=== PATIENT | male | born 2000 | race Caucasian/White ===

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

== ENCOUNTER 2020-05-26 15:49 | Emergency (ER) | payer OTHER ==
[~2020-05-26] VITALS: Ht 172.7 cm; Wt 121.1 kg
[2020-05-26 16:01] VITALS: BP 108/51
--- NOTE | 2020-05-26 16:10 | NUR ---
Patient ambulated to bed 1 with family. RN evaluating patient at bedside.
[2020-05-26] MEDS ORDERED: LIDOCAINE MPF 2% 100 MG/5 ML VIAL INJ ONE (16:20)
[2020-05-26] MEDS ORDERED: KETOROLAC 60 MG/2 ML VIAL IM ONE (16:20)
[2020-05-26] MEDS ORDERED: LIDOCAINE 2% 100 MG/5 ML SYR IVP ONE (16:36)
--- NOTE | 2020-05-26 16:40 | NUR ---
PT C/O L 1ST TOE PAIN X 4 DAYS. TOENAIL APPEARS TO BE SLIGHTLY SWOLLEN AND INGROWN. PT GRIMACING WITH WALKING. FLACC SCALE 5/10. MOTHER STATES SITE HAS DISCHARGE. PT ALERT AND AWAKE. PMH- MENTAL DISABILITY
--- NOTE | 2020-05-26 16:43 | NUR ---
I&D KIT AT BEDSIDE, PA ORTIX AT BEDSIDE FOR PROCEDURE
[2020-05-26] MEDS ORDERED: BACITRACIN OINT 500 UNITS/GM PKT TP ONE (17:15)
--- NOTE | 2020-05-26 17:27 | NUR ---
BACITRACIN APPLIED TO SITE
--- NOTE | 2020-05-26 17:27 | NUR ---
PLACED BACITRACIN ON PT'S LEFT TOE PER MD ORDER. PLACED NON-ADHERENT DRESSING ON TOE OF PT
[2020-05-26 17:39] VITALS: BP 109/57
--- NOTE | 2020-05-26 17:43 | NUR ---
Patient discharged with v/s stable. Written and verbal after care instructions given and explained. Patient alert, oriented and verbalized understanding of instructions. Ambulatory with steady gait. All questions addressed prior to discharge. ID band removed. Patient advised to follow up with PMD. Rx of IBU, CEPHALEXIN given. Patient educated on indication of medication including possible reaction and side effects. Opportunity to ask questions provided and answered.
== END 2020-05-26 17:43 | disposition home or self-care (01) ==
LOC: MED 15:49
DX: M79.675 Pain in left toe(s) (principal); L60.0 Ingrowing nail
CPT/HCPCS: 11730; 96372; 99284; J1885; J2001

== ENCOUNTER 2020-09-18 16:38 | Emergency (ER) | payer OTHER ==
[~2020-09-18] VITALS: Ht 175.3 cm; Wt 127.5 kg
[2020-09-18 17:06] VITALS: BP 141/80
[2020-09-18] MEDS ORDERED: IBUPROFEN 600 MG TAB PO ONE (17:40)
[2020-09-18] MEDS ORDERED: ACETAMINOPHEN EXTRA STRENGTH 500 MG TAB PO ONE (17:40)
[2020-09-18 18:01] VITALS: BP 128/75
== END 2020-09-18 18:01 | disposition home or self-care (01) ==
LOC: MED 16:38
DX: L02.411 Cutaneous abscess of right axilla (principal); F84.0 Autistic disorder
CPT/HCPCS: 99283

== ENCOUNTER 2021-05-10 15:21 | Emergency (ER) | payer OTHER ==
[~2021-05-10] VITALS: Ht 170.2 cm; Wt 141.7 kg
[2021-05-10 15:22] VITALS: BP 164/100
--- NOTE | 2021-05-10 15:30 | NUR ---
pt ambulated to bed 4.
--- NOTE | 2021-05-10 15:56 | NUR ---
20 Y/O M BIB MOTHER FROM HOME, PATIENT PRESENTS TO ED WITH SOB AND NON PRODUCTIVE COUGH. PT MOTHER STATES SHE IS CONCERNED FOR PT BECAUSE SHE STATES HE HAS DIFFICULTY BREATHING WHEN HE COUGHS. DENIES N/V/D; SKIN IS PINK/WARM/DRY; AAOX4 WITH EVEN AND STEADY GAIT; LUNGS CLEAR BL; HR EVEN AND REGULAR; PT DENIES ANY FEVER, CP AT THIS TIME; PATIENT FLACC 0 AT THIS TIME, UNABLE TO VERBALIZE PAIN; VSS; PATIENT POSITIONED FOR COMFORT; HOB ELEVATED; BEDRAILS UP X2; BED DOWN. ER MD MADE AWARE OF PT STATUS. PMH: ASTHMA, AUTISM NKA
[2021-05-10] MEDS ORDERED: BENZ-196 PO (16:55)
[2021-05-10] MEDS ORDERED: ALBU0.0912 IH (16:55)
[2021-05-10] MEDS ORDERED: DEXAMETHASONE 10 MG/ML VIAL PO ONE (16:55)
[2021-05-10 17:25] VITALS: BP 164/100
--- NOTE | 2021-05-10 17:26 | NUR ---
Patient discharged with v/s stable. Written and verbal after care instructions ABOUT MEDICATIONS AND COUGH given and explained. Patient alert, oriented and verbalized understanding of instructions. Ambulatory with steady gait. All questions addressed prior to discharge. ID band removed. Patient advised to follow up with PMD. Rx of ALBUTEROL SULFATE AND BENZONATATE (TESSALON PERLE) given. Patient educated on indication of medication including possible reaction and side effects. Opportunity to ask questions provided and answered.
== END 2021-05-10 17:26 | disposition home or self-care (01) ==
LOC: MED 15:21
DX: R05 Cough (principal); R06.02 Shortness of breath; J45.909 Unspecified asthma, uncomplicated
CPT/HCPCS: 71045; 99283; J1100

== ENCOUNTER 2021-07-22 20:00 | Emergency (ER) | payer OTHER ==
[~2021-07-22] VITALS: Ht 170.2 cm; Wt 142.9 kg
[~2021-07-22 20:00] MED LIST: ALBU0.0912 IH; BENZ-196 PO
[2021-07-22 20:41] VITALS: BP 135/78
[2021-07-22] MEDS ORDERED: LIDOCAINE 2% 1000 MG/50 ML VIAL INJ ONE (22:55)
--- NOTE | 2021-07-22 22:58 | NUR ---
PT AMBULATED TO BED 11
--- NOTE | 2021-07-22 23:00 | NUR ---
20 YO M BIB MOTHER WITH C/C OF INGROWN NAIL ON R BIG TOE X1DAY. 05/23 PAIN. HX:AUTISM
--- NOTE | 2021-07-22 23:33 | NUR ---
ERMD AND EMT PERFORMING PROCEDURE. MOTHER AT BEDSIDE.
[2021-07-22] MEDS ORDERED: CEPH-588 PO (23:49)
[2021-07-22] MEDS ORDERED: BACITRACIN OINT 500 UNITS/GM PKT TP ONE (23:58)
[2021-07-23] MEDS ORDERED: BACITRACIN OINT 500 UNITS/GM PKT TP ONE (00:05)
[2021-07-23 00:13] VITALS: BP 135/78
--- NOTE | 2021-07-23 00:13 | NUR ---
Patient discharged with v/s stable. Written and verbal after care instructions given and explained. Patient alert, oriented and verbalized understanding of instructions. Ambulatory with by parent. All questions addressed prior to discharge. ID band removed. Patient advised to follow up with PMD. Rx of KEFLEX given. Patient educated on indication of medication including possible reaction and side effects. Opportunity to ask questions provided and answered.
== END 2021-07-23 00:13 | disposition home or self-care (01) ==
LOC: MED 20:00
DX: L60.0 Ingrowing nail (principal); J45.909 Unspecified asthma, uncomplicated
CPT/HCPCS: 11730; 99284; J2001